=== PATIENT | male | born 1955 | race Caucasian/White ===

== ENCOUNTER → 2020-10-20 | Outpatient (CLI) | payer OTHER ==
[~2020-10-20] MED LIST: ACID CONTROL20 MG PO; ADULT LOW DOSE81 MG PO; ASPIRIN325 PO; CARDIZEM CD360 MG PO; CEFDINIR300 MG; COUMADIN 5 MG TA5 M1 PO; COUMADIN6 MG PO; ENOXAPARIN80 MG/0.8 SQ; FAMOTIDINE PO; GAS-X125 MG PO; IMDUR 60 MG TAB60 M1 PO; IMDUR120 MG PO; ISOSORBIDE MON120 MG PO; KEFLEX500 MG PO; LIPITOR40 MG PO; LIPITOR80 MG PO; MULTIVITAMINS PO; NEXIUM40 MG PO; NITROLINGUAL PU12 G1 SL; NITROLINGUAL PU12 G1 SUBLING; PRILOSEC 20 MG20 MG PO; VICODIN 5-5001 EACH PO; WARFARIN SODIUM1 MG PO; WARFARIN SODIUM5 MG PO
== END ==
LOC: LAB 08:46
PROVIDERS: ATTEND Surgery
DX: Z01.812 Encounter for preprocedural laboratory examination (principal); Z20.822 Contact with and (suspected) exposure to COVID-19

== ENCOUNTER 2020-10-24 11:27 | Day surgery (SDC) | payer OTHER ==
[~2020-10-24] VITALS: Ht 190.5 cm; Wt 91.6 kg
--- NOTE | ~2020-10-24 | O ---
[facility] [place] [address] OPERATIVE REPORT Name: EUGENIO SIMMONS Room #: 150-7 [facility]..#: [id number] Admission: 10/24/20 Attend Phys: Eugenio Murdock MD Discharge: Date of : 57 Report #: [id number] THIS REPORT FOR: cc: Muna Brandon MD, Cora A. MD Franey,Eugenio Morales MD ~ DATE OF SERVICE: 10/24/[address] Eugenio Murdock and Dr. Muna Brandon. PREOPERATIVE DIAGNOSIS: Right inguinal hernia. POSTOPERATIVE DIAGNOSIS: Right inguinal hernia. PROCEDURE: Right inguinal hernia repair with Prolene Hernia System mesh and excision of a right cord lipoma. SURGEON: Eugenio Murdock MD ANESTHESIA: Local IV sedation. DESCRIPTION OF PROCEDURE: The patient was brought to the operating room and placed on operative table in the supine position. Sequential compression devices were in place for DVT prophylaxis. There was no indication for preoperative antibiotics. The patient underwent IV sedation and the right inguinal area was prepped and draped in a sterile fashion. Skin and subcutaneous tissue were then infiltrated along the right inguinal canal using 0.5% Marcaine and 1% Xylocaine mixed 1:1. Right inguinal skin incision was then performed using #10 scalpel blade. Hemostasis obtained using electrocautery as well as clamps and 2-0 chromic ties. Dissection was carried down through subcutaneous tissue, the external oblique fascia, which was then incised with a knife, opened with the Metzenbaum scissors. The ilioinguinal nerve was identified, dissected free, injected with a local mixture and preserved. Cord was then elevated and held in place with a Emi drain. Cremasteric muscle fibers were then split in the direction of the fibers using clamp and electrocautery. A large cord lipoma was identified, dissected free, clamped, excised and tied with a 2-0 chromic tie. The cord was further inspected and there was an indirect inguinal hernia sac, which was dissected free and reduced back through the internal ring. The floor was found to be intact, but the internal ring was markedly dilated. An extended Prolene Hernia System mesh was then inserted through the internal ring and the underlay patch was then deployed in the preperitoneal space. The connector was left in the internal ring. The floor was tightened including the internal ring using running 2-0 Prolene 2-layer Bassini repair. The overlay patch was then deployed in the inguinal canal and secured the pubic tubercle with the same running 2-0 Prolene suture[address] [address] OPERATIVE REPORT [facility]: [facility] Room #: 150-7 [facility] M.R.#: [id number] Admission: 10/24/20 Attend Phys: Eugenio Murdock MD Discharge: Date of : 57 Report #: [id number] Mesh was secured superiorly at the connector using simple interrupted 2-0 Vicryl sutures. The mesh was split and wrapped around the cord, secured to the inguinal ligament with the 2-0 Vicryl suture. The cord and ilioinguinal nerve were then returned to the canal intact. The external oblique fascia was then closed using running 2-0 Vicryl suture. Jossy's fascia was then reapproximated using 3 simple interrupted 2-0 chromic sutures and the skin then closed with a running 4-0 subcuticular Vicryl stitch. Wound was then dressed with Mastisol, 1/2-inch Steri-Strips cut in half, Telfa, 4 x 4 gauze, sponge and tape. The patient was then awakened from the IV sedation, taken to recovery room in good condition. Estimated blood loss was approximately 10 mL and the patient tolerated procedure well. All sponge, lap and instrument counts correct x 2. By: [id number] Eugenio Murdock MD /nt
[2020-10-24 12:40] VITALS: BP 161/73
[2020-10-24 12:47] LABS: INR 1.1; PROTIME 11.6 Seconds (9.3-11.4)
[2020-10-24] MEDS ORDERED: HYDROCODON-ACE1 EAC7 PO (13:47)
[2020-10-24 15:14] VITALS: BP 161/73
[2020-10-24 15:15] VITALS: BP 161/73
--- NOTE | 2020-10-28 17:06 | PATH ---
[facility] [address] [place] [address] PATHOLOGY RPT PROCEDURE Name: CHARU SIMMONS Room #: [facility] [facility] [place].R.#: [id number] Admission: 10/24/20 Date of : 57 Discharge: 10/24/20 Report #: [id number] Path Case #: [id number] [facility] Accession Number: [id number] . 01 Material submitted: . inguinal area - CORD LIPOMA . 01 Clinical history: . RIGHT INGUINAL HERNIA REPAIR . 02 Diagnosis: Mature adipose tissue, cord lipoma, excision: - Mature adipose tissue compatible with a lipoma. - Periphery showing reactive lymph node tissue with macrophages and histiocytes. (IUV/db; 10/28/2020) LBQ 10/28/2020 1455 Local . 02 Electronically signed: . Florencia Saeed MD, Pathologist NPI- [id number] . 01 Gross description: . The specimen is received in formalin, labeled "cecy Barnes lipoma". Received is a segment of yellow-santiago lobulated tissue measuring 6.5 x 5.5 x 2.1 cm in greatest dimensions. Sectioning reveals bright yellow cut surfaces with no grossly distinct nodules or lesions. The specimen is submitted representatively in cassette A1. (CAA; 10/27/2020) QA/QA 10/27/2020 1354 Local . 02 Pathologist provided ICD-10: K40.90 . 02 CPT . 773547 Specimen Comment: A courtesy copy of this report has been sent to [phone] Specimen Comment: [phone] Specimen Comment: Report sent to / DR NOE Performed at: [address] [id number] MD Slick Quiñones MD Phone: [phone] Performed at: [address] [id number] [address] [address] PATHOLOGY RPT PROCEDURE Name: CHARU SIMMONSHERMINIOJALEN Room #: [place] [facility] M.R.#: [id number] Admission: 10/24/20 Date of : 57 Discharge: 10/24/20 Report #: [id number] Path Case #: [id number] MD Florencia Saeed MD Phone: [phone]
== END 2020-10-24 16:30 | disposition home or self-care (01) ==
LOC: TBA 11:27 → OR 11:27 → TBA 11:28 → OR 12:11
PROVIDERS: ATTEND Surgery
DX: K40.90 Unilateral inguinal hernia, without obstruction or gangrene, not specified as recurrent (principal); D17.6 Benign lipomatous neoplasm of spermatic cord; Z88.0 Allergy status to penicillin; Z88.8 Allergy status to other drugs, medicaments and biological substances; I48.91 Unspecified atrial fibrillation; I25.2 Old myocardial infarction; K21.9 Gastro-esophageal reflux disease without esophagitis; E78.5 Hyperlipidemia, unspecified; G47.30 Sleep apnea, unspecified; I20.1 Angina pectoris with documented spasm; Z79.01 Long term (current) use of anticoagulants; Z95.810 Presence of automatic (implantable) cardiac defibrillator; Z90.49 Acquired absence of other specified parts of digestive tract; D68.51 Activated protein C resistance; Z98.890 Other specified postprocedural states
CPT/HCPCS: 50010; 50101; 50386; 50417; 54111; 56524; 56525; 56526; 56528; 62110; 62850; 70005